=== PATIENT | male | born 1975 | race Caucasian/White ===

== ENCOUNTER 2016-08-24 05:16 | Emergency (ER) | payer SELFPAY ==
[~2016-08-24 05:16] MED LIST: CARI350T PO; CYCL-331 PO; DEXL60CA2 PO; DIVA500T2 PO; DIVA500T4 PO; GABA600T2 PO; LOSA100T6 PO; NAPR500T PO; NEBI20TA2 PO; OLAN20TA3 PO; OXYM10TA PO; OXYM10TA28 PO; QUET300T5 PO; TRAM50TA PO; TRAZ-90 PO
[2016-08-24] MEDS: LIDOCAINE WITH 8.4% SOD BICARB 3 ML DISP.SYRIN. IJ ONE (06:30)
[2016-08-24] MEDS ORDERED: CLIN300C8 PO (07:03)
--- NOTE | 2016-08-24 07:12 | PHYS DOC ---
Past History Past Medical History: No Pertinent History Past Surgical History: No Surgical History Smoking: Cigarettes Alcohol Use: None Drug Use: None Adult General Chief Complaint Chief Complaint: ABSCESS HPI HPI 40-year-old male presenting to the emergency department with worsening fluctuance in his buttocks over the past 2 days. He reports it initially started as a pimple but over the past 24 hours has turned into a golf ball sized abscess. Location buttocks region. Duration constant. Associated with pain that is sharp moderate intermittent and without alleviating factors. He denies any fevers or chills. He denies any other symptoms. Review of systems is negative for chest pain shortness of breath abdominal pain nausea vomiting. All other review of systems is negative unless otherwise noted in history of present illness. ED course: 40-year-old gentleman presenting with an abscess in the perianal region. Initially abscess seemed superficial so small incision was made and gentle blunt dissection using Beatriz forceps. Purulent drainage was obtained. Under gentle blunt dissection, it became apparent that the abscess was deeper than initially thought. At that point in time, incision and drainage was stopped and I discussed the case with our surgeon on-call for consultation (dr. beasley). Collectively, given the depth of the abscess, we decided to give the patient IV antibiotics and transfer for admission and further evaluation with potential surgical intervention. I recommended the patient go by ambulance however the patient refused and strongly desires to go by private vehicle. The patient demonstrates medical decision making capacity. The patient was then directly admitted to [facility] with surgical consultation for further evaluation workup and care. Review of Systems Review of Systems SEE ABOVE. Current Medications Current Medications Current Medications Medications (Trade) Dose Ordered Sig/Sathya Start Time Stop Time Status Last Admin Dose Admin Lidocaine/Sodium Bicarbonate (Buffered Lidocaine 1%) 6 ml 1X ONCE 08/24/16 06:30 08/24/16 06:47 DC 08/24/16 06:30 6 ML Allergies Allergies Allergies Coded Allergies Type Severity Reaction Last Updated Verified oxycodone Allergy Intermediate Hives 02/11/16 Yes Physical Exam Physical Exam Constitutional: Well developed, well nourished, no acute distress, non-toxic appearance. HENT: Normocephalic, atraumatic, bilateral external ears normal, oropharynx moist, no oral exudates, nose normal. [] Eyes: PERRLA, EOMI, conjunctiva normal, no discharge. [] Neck: Normal range of motion, no tenderness, supple, no stridor. Cardiovascular:Heart rate regular rhythm, no murmur [] Lungs & Thorax: Bilateral breath sounds clear to auscultation [] Abdomen: Bowel sounds normal, soft, no tenderness, no masses, no pulsatile masses. [] Anogenital exam. The patient has fluctuance in the posterior perianal ischial region with swelling and redness. Skin: Warm, dry, no erythema, no rash. [] Back: No tenderness, no CVA tenderness. [] Extremities: No tenderness, no cyanosis, no clubbing, ROM intact, no edema. [] Neurologic: Alert and oriented X 3, normal motor function, normal sensory function, no focal deficits noted. [] Psychologic: Affect normal, judgement normal, mood normal. [] Current Patient Data Vital Signs Vital Signs Date Time Temp Pulse Resp B/P (MAP) Pulse Ox O2 Delivery O2 Flow Rate FiO2 08/24/16 05:42 98.3 85 20 97 Room Air EKG EKG [] Radiology/Procedures Radiology/Procedures [] Course & Med Decision Making Course & Med Decision Making Pertinent Labs and Imaging studies reviewed. (See chart for details) [] Dragon Disclaimer Dragon Disclaimer This chart was dictated in whole or in part using Voice Recognition software in a busy, high-work load, and often noisy Emergency Department environment. It may contain unintended and wholly unrecognized errors or omissions. Departure Departure: Impression: Primary Impression: Perirectal abscess Disposition: ADMITTED INPATIENT Condition: STABLE Referrals: ROSE MARY KRAUS DO (PCP) Patient Instructions: Valerie-Rectal Abscess Scripts Clindamycin Hcl (CLINDAMYCIN HCL) 300 Mg Capsule 1 CAP PO TID, #21 CAP Prov: CASSIE REYES MD 08/24/16 CASSIE REYES MD Aug 24, 2016 07:12
[2016-08-24 07:17] LABS: BASO % 1 % (0-3); EOS # 0.1 x10^3/uL (0.0-0.7); EOS % 1 % (0-3); HEMATOCRIT 33.9 % (39.0-53.0); HEMOGLOBIN 11.5 g/dL (13.0-17.5); LYMPH % 28 % (24-48); MEAN CORPUSCULAR HEMOGLOBIN 28 pg (25-35); MEAN CORPUSCULAR HGB CONC 34 g/dL (31-37); MEAN CORPUSCULAR VOLUME 82 fL (79-100); MONO # 0.6 x10^3/uL (0.0-1.1); MONO % 8 % (0-9); NEUT # 4.4 x10^3uL (1.8-7.7); NEUT % 62 % (31-73); PLATELET COUNT 208 x10^3/uL (140-400); RED BLOOD COUNT 4.13 x10^6/uL (4.30-5.70); RED CELL DISTRIBUTION WIDTH 18.4 % (11.5-14.5); WHITE BLOOD COUNT 7.2 x10^3/uL (4.0-11.0)
[2016-08-24] MEDS: CLINDAMYCIN 900MG PREMIX 50 ML IV ONE (07:17)
[2016-08-24 07:25] LABS: CALCIUM 7.9 mg/dL (8.5-10.1); CREATININE 0.7 mg/dL (0.7-1.3); GFR 124.9; POTASSIUM 3.9 mmol/L (3.5-5.1)
[2016-08-24 07:54] VITALS: BP 135/70
--- NOTE | 2016-08-24 08:11 | ACF ---
Admission Criteria Forms SKIN AND WOUND CARE Clinical Indications for Inpatient Care (Place 'X' for any and all applicable criteria): Ongoing inpatient care may be indicated for pressure, venous, arterial, or neuropathic ulcers, with ANY ONE of the following (2)(3)(8)(9)(21)(25): [ ]I. Need for ANY ONE of the following(26) [ ]a) Pressure ulcer closure procedures [ ]b) Skin grafting [ ]c) Wound debridement [ ]d) Dressing change under general anesthesia [ ]e) Arterial revascularization procedures(19) (Also use Aortofemoral or Aortoiliac Bypass or Femoral Popliteal Bypass Criteria as appropriate) [ ]f) Amputation (Also use Foot: Transmetatarsal Amputation or Knee: Amputation Above or Below Knee Criteria as appropriate) [ ]g) Diverting colostomy [ ]h) Other significant surgical treatment [ ]II. Infection requiring inpatient care as indicated by ALL of the following( 27) [ ]a) ANY ONE of the following signs of infection: [ ]i) Poorly approximated incision line. [ ]ii) Excessive drainage [ ]iii) Foul odor [ ]iv) Pus [ ]v) Increased redness [ ]vi) Breakdown in tissue after suture removal [ ]vii) Fever [ ]b) ANY ONE of the following findings: [ ]i) Mental status changes [ ]ii) Dehydration [ ]iii) Bacteremia [ ]iv) Perineal infection [ ]v) Hemodynamic instability [ ]vi) High-risk conditions, such as ANY ONE of the following: [ ]1) Poorly controlled diabetes [ ]2) Cirrhosis [ ]3) Neutropenia [ ]4) Asplenia [ ]5) HIV infection [ ]6) Immunosuppression Extended stay beyond goal length of stay for primary condition may be needed until ALL of the following are present(1)(2)(13)(21)(27): [ ]a) Tissue necrosis absent or treatment plan manageable at lower level of care [ ]b) Fistulas, tunneling, or underlying deep tissue infection absent or treated [ ]c) Purulence and tissue breakdown absent or improved [ ]d) Ulcer surgical repair absent or healing without complications [ ]e) Wound infection absent or manageable at lower level of care [ ]f) Comorbidities absent or manageable at lower level of care The original Babita Randle content created by [employer] has been revised. The portions of the content which have been revised are identified through the use of italic text or in bold, and [facility] has neither reviewed nor approved the modified material. All other unmodified content is copyright [facility]. Please see references footnoted in the original [facility] edition 2016 ES TANNER Aug 24, 2016 08:11
== END 2016-08-24 08:30 | disposition short-term general hospital (02) ==
LOC: ER 05:16
DX: K61.1 Rectal abscess (principal); F17.210 Nicotine dependence, cigarettes, uncomplicated; Z88.6 Allergy status to analgesic agent
CPT/HCPCS: 36415; 46050; 80048; 85027; 96365; 99285; J3490; 10060

== ENCOUNTER 2016-12-24 19:31 | Emergency (ER) | payer SELFPAY ==
[~2016-12-24] VITALS: Ht 180.3 cm; Wt 65.1 kg
[~2016-12-24 19:31] MED LIST changes: +CLIN300C8 PO
--- NOTE | 2016-12-24 20:24 | ED.ADGEN ---
Past History Past Medical History: No Pertinent History Past Surgical History: No Surgical History Smoking: Cigarettes Alcohol Use: None Drug Use: None Adult General Chief Complaint Chief Complaint " I got an infection under my chin.... I ve been trying to get it to drain... and it is really infected.. and got infection of this index finger Rt..." " I ve had MRSA in the past... " HPI HPI Patient is a 41 year old male who presents with above hx and complaints of cellulitis Lt index, and chin. Pt. has a pointing abscess under chin that he reports he attempted to drain. Abscess appears to have started from folliculitis. Pt. has some adenopathy in neck. Patient also has complaints of left index finger abscess on distal joint of index finger. Patient also was attempted to drain this several times. Patient denies any history of immunosuppression. Patient denies any travel or specific ill contacts. Patient does have history of previous MRSA. Patient states had tetanus 3 years ago. Patient normally follows with Dr. Coombs. Procedure note- incision and drainage- pointing abscess on chin in size of 11 blade after prepping with Betadine. Possibly 3 mL of white pus drainage. Left index finger prepped with Betadine and incised with 11 blade with also drainage possibly 1 mL of white pus. Wounds re-cleaned with Betadine. Dressing applied. Patient to take Bactrim DS twice a day for 10 days. Polysporin 4 times a day. Wounds. Keep clean and dry. Return if any concerns. Must follow-up primary care Review of Systems Review of Systems Constitutional: Denies fever or chills [] Eyes: Denies change in visual acuity, redness, or eye pain [] HENT: Denies nasal congestion or sore throat [] Respiratory: Denies cough or shortness of breath [] Cardiovascular: No additional information not addressed in HPI [] GI: Denies abdominal pain, nausea, vomiting, bloody stools or diarrhea [] : Denies dysuria or hematuria [] Musculoskeletal: Denies back pain or joint pain [] Integument: Complaints of abscess Neurologic: Denies headache, focal weakness or sensory changes [] Endocrine: Denies polyuria or polydipsia [] Family History Family History Noncontributory Current Medications Current Medications Current Medications Medications (Trade) Dose Ordered Sig/Sathya Start Time Stop Time Status Last Admin Dose Admin Ceftriaxone Sodium (Rocephin Im) 1 gm 1X ONCE 12/24/16 20:30 12/24/16 20:31 DC 12/24/16 21:30 1 GM Diphtheria/ Tetanus/Acell Pertussis (Boostrix) 0.5 ml ONCE ONCE 12/24/16 20:30 12/24/16 20:31 DC 12/24/16 21:32 0.5 ML Lidocaine HCl 20 ml STK-MED ONCE 12/24/16 21:24 12/24/16 21:25 DC Tetanus/ Diphtheria Toxoids Adsorbed (Tenivac Vial) 0.5 ml ONCE ONCE 12/24/16 20:30 12/24/16 20:31 UNV Trimethoprim/ Sulfamethoxazole (Bactrim Ds) 1 tab 1X ONCE 12/24/16 20:30 12/24/16 20:31 DC 12/24/16 21:30 1 TAB Allergies Allergies Allergies Coded Allergies Type Severity Reaction Last Updated Verified oxycodone Allergy Intermediate Hives 02/11/16 Yes Physical Exam Physical Exam Constitutional: Moderate distress, non-toxic appearance. [] HENT: Normocephalic, atraumatic, bilateral external ears normal, oropharynx moist, no oral exudates, nose normal. Abscess as per history of present illness. No dentition Eyes: PERRLA, EOMI, conjunctiva normal, no discharge. [] Neck: Normal range of motion, no tenderness, supple, no stridor. [] Cardiovascular:Heart rate regular rhythm, no murmur [] Lungs & Thorax: Bilateral breath sounds equal with scattered wheezes on auscultation [] Abdomen: Bowel sounds normal, soft, no tenderness, no masses, no pulsatile masses. [] Skin: Warm, dry, no erythema, no rash. [] Back: No tenderness, no CVA tenderness. [] Extremities: No tenderness, no cyanosis, no clubbing, ROM intact, no edema. Except findings of left index finger as per history of present illness Neurologic: Alert and oriented X 3, normal motor function, normal sensory function, no focal deficits noted. [] Psychologic: Affect normal, judgement normal, mood normal. [] Current Patient Data Vital Signs Vital Signs Date Time Temp Pulse Resp B/P (MAP) Pulse Ox O2 Delivery O2 Flow Rate FiO2 12/24/16 22:10 98.0 72 16 127/76 (93) 98 EKG EKG [] Radiology/Procedures Radiology/Procedures [] Course & Med Decision Making Course & Med Decision Making Pertinent Labs and Imaging studies reviewed. (See chart for details). Patient take Bactrim DS twice a day for 10 days. Massage area Polysporin. Follow -up primary care. Return if any concerns. [] Final Impression Final Impression 1. Cellulitis[]/abscess Problems: Dragon Disclaimer Dragon Disclaimer This electronic medical record was generated, in whole or in part, using a voice recognition dictation system. UBALDO JUAREZ MD Dec 24, 2016 20:24
[2016-12-24] MEDS ORDERED: SMZ/TMP 800/160MG TABLET. PO ONE (20:30)
[2016-12-24] MEDS ORDERED: TETANUS AND DIPHTHERIA TOX/PF 0.5 ML VIAL. VAX IM ONE (20:30)
[2016-12-24] MEDS ORDERED: DIPHTH,PERTUSS(ACELL),TET TOX 0.5 ML DISP.SYRIN. VAX IM ONE (20:30)
[2016-12-24] MEDS ORDERED: cefTRIAXone IM 1 GM VIAL IM ONE (20:30)
[2016-12-24] MEDS ORDERED: SULF1TAB24 PO (20:31)
[2016-12-24] MEDS ORDERED: BACI28.34 TP (20:31)
[2016-12-24] MEDS ORDERED: LIDOCAINE 1% Multi-Dose 20 ML VIAL. ONE (21:24)
[2016-12-24 22:10] VITALS: BP 127/76
--- NOTE | 2016-12-25 06:03 | EKG ---
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
== END 2016-12-24 22:15 | disposition home or self-care (01) ==
LOC: ER 19:31
DX: L02.512 Cutaneous abscess of left hand (principal); L02.01 Cutaneous abscess of face; Z88.5 Allergy status to narcotic agent; Z86.14 Personal history of Methicillin resistant Staphylococcus aureus infection
CPT/HCPCS: 90471; 90715; 93005; 96372; 99284; J0696

== ENCOUNTER 2016-12-26 01:03 | Inpatient (IN) | payer SELFPAY ==
[~2016-12-26] VITALS: Ht 180.3 cm; Wt 65.4 kg
[~2016-12-26 01:03] MED LIST changes: +BACI28.34 TP; +SULF1TAB24 PO
--- NOTE | 2016-12-26 01:12 | ED.ADGEN ---
Past History Past Medical History: No Pertinent History, Abscess, Other Past Surgical History: No Surgical History Smoking: Cigarettes Alcohol Use: None Drug Use: None Adult General Chief Complaint Chief Complaint "This abscess did okay after you drained it yesterday.. but tonight this chin area blew all up again.. and fever and chills came back.." HPI HPI Patient is a 41 year old male who presents with abscess and cellulitis. The chin area is still draining Muco- purulent green pus, left index finger is improved.. Patient denies any history of immunosuppression. No travel. No specific ill contacts. Has had MRSA before. Pt. states area under chin started out as folliculitis, but all sudden it" blew up". Pt. seen previously and finger and chin area I & D. Finger looks better, but area on chin has become swollen again. Mild adenopathy in that area. Culture tip placed in the wound and it was used to break up some of the loculations. Approximately 10 cc of garcia/green pus was then drained. Discussed presentation, testing and tx. plan with Dr. Foster. at 210 Am and pt will be admitted for IV antibiotics. Labs pending at time of admission. Review of Systems Review of Systems Constitutional: Denies fever or chills [] Eyes: Denies change in visual acuity, redness, or eye pain [] HENT: Denies nasal congestion or sore throat [] Respiratory: Denies cough or shortness of breath [] Cardiovascular: No additional information not addressed in HPI [] GI: Denies abdominal pain, nausea, vomiting, bloody stools or diarrhea [] : Denies dysuria or hematuria [] Musculoskeletal: Denies back pain or joint pain [] Integument: Complaints of skin infections Neurologic: Denies headache, focal weakness or sensory changes [] Endocrine: Denies polyuria or polydipsia [] Family History Family History Noncontributory Current Medications Current Medications Current Medications Medications (Trade) Dose Ordered Sig/Sathya Start Time Stop Time Status Last Admin Dose Admin Vancomycin HCl (Vanco Per Pharmacy) 1 each PRN DAILY PRN 12/26/16 02:00 UNV See nursing for home meds Allergies Allergies Allergies Coded Allergies Type Severity Reaction Last Updated Verified oxycodone Allergy Intermediate Hives 02/11/16 Yes Physical Exam Physical Exam Constitutional: in acute distress, non-toxic appearance. [] HENT: Normocephalic, atraumatic, bilateral external ears normal, oropharynx moist, no oral exudates, nose normal. Drainage site is under chin still draining green purulent pus Eyes: PERRLA, EOMI, conjunctiva normal, no discharge. [] Neck: Normal range of motion, no tenderness, supple, no stridor. Some mild adenopathy. Cardiovascular:Heart rate regular rhythm, no murmur [] Lungs & Thorax: Bilateral breath sounds equal with scattered wheezes on auscultation [] Abdomen: Bowel sounds normal, soft, no tenderness, no masses, no pulsatile masses. [] Skin: Warm, dry, no erythema, no rash. [] Back: No tenderness, no CVA tenderness. [] Extremities: No tenderness, no cyanosis, no clubbing, ROM intact, no edema. [] Lt index finger tip is swollen but look much better than previous exam. Neurologic: Alert and oriented X 3, normal motor function, normal sensory function, no focal deficits noted. [] Psychologic: Affect anxious, judgement normal, mood normal. [] Current Patient Data Vital Signs Vital Signs Date Time Temp Pulse Resp B/P (MAP) Pulse Ox O2 Delivery O2 Flow Rate FiO2 12/26/16 01:15 98.6 76 16 99 Room Air EKG EKG [] Radiology/Procedures Radiology/Procedures [] Course & Med Decision Making Course & Med Decision Making Pertinent Labs and Imaging studies reviewed. (See chart for details) Discussed presentation, testing and tx. plan with Dr. Foster- 0200 will admit for IV antibiotics [] Final Impression Final Impression 1. Abscess and Cellulitis[] 2. Out pt. Tx. failure 3. Hx. Meth. Use 4. Hx. MRSA 5. Anemia Problems: Dragon Disclaimer Dragon Disclaimer This electronic medical record was generated, in whole or in part, using a voice recognition dictation system. UBALDO JUAREZ MD Dec 26, 2016 01:12
[2016-12-26] MEDS ORDERED: IV RINGERS SOLUTION,LACTATED 1,000 ML IV SCH (02:15)
[2016-12-26] MEDS ORDERED: VANCOMYCIN 1.75 GM in IV NORMAL SALINE 500ML 500 ML IV ONE (02:30)
[2016-12-26] MEDS ORDERED: SMZ/TMP 800/160MG TABLET. PO ONE (02:30)
[2016-12-26] MEDS ORDERED: cefTRIAXone IM 1 GM VIAL IM ONE (02:30)
[2016-12-26] MEDS ORDERED: KETOROLAC 30 MG/ML VIAL. IV ONE (02:30)
[2016-12-26] MEDS ORDERED: VANCOMYCIN PER PHARMACY MC PRN ×2 (03:00→04:15)
[2016-12-26] MEDS ORDERED: IV NORMAL SALINE 500ML 500 ML ONE (03:02)
[2016-12-26] MEDS ORDERED: VANCOMYCIN 1 GM VIAL. ONE ×2 (03:03→03:04)
--- NOTE | 2016-12-26 03:21 | RAD ---
CT MAXILLOFACIAL WO CONTRAST dated 12/26/2016 1:53 AM Indication: Swelling, [id number] Swelling, drainage and pain under chin, patient states it started out as a infected hair. No priors.. Comparison: No comparison is available. Technique: Contiguous axial imaging the maxillofacial bones obtained with thin cut coronal and sagittal reconstruction. One or more of the following individualized dose reduction techniques were utilized for this examination: 1. Automated exposure control 2. Adjustment of the mA and/or kV according to patient size 3. Use of iterative reconstruction technique Findings: Focal soft tissue swelling at the submental region inferior to the mandible. There is skin thickening with prominent subcutaneous edema. A rounded area of induration deep to the skin surface measures about 1.9 cm maximum dimension. No soft tissue gas. Evaluation is limited in the absence of contrast material. No bony destructive changes or periostitis. Mild mucosal thickening of the bilateral ethmoid air cells. The maxillary sinuses and sphenoid sinuses are clear. Ostiomeatal units and infundibula are patent. Mild nasal septal deviation to the left. Imaged portions of the brain parenchyma unremarkable. No additional soft tissue abnormality. IMPRESSION: 1. Focal soft tissue edema in the submental region just inferior to the right aspect of the mandible, nonspecific. This could be related to phlegmon or early abscess but is not well evaluated in the absence of contrast material. 2. Mild ethmoid sinus mucosal thickening. 3. No acute bony abnormality. Electronically signed by: Loco Martinez MD (12/26/2016 3:18 AM) [facility]
[2016-12-26 03:42] LABS: BARBITURATES NEG (NEG); BENZODIAZEPINES NEG (NEG); CANNABINOIDS NEG (NEG); COCAINE NEG (NEG); METHADONE NEG (NEG); OPIATES POS (NEG); PHENCYCLIDINE NEG (NEG)
[2016-12-26 03:43] LABS: AMPHETAMINE/METHAMPHETAMINE POS (NEG); BASO # 0.1 x10^3/uL (0.0-0.2); BASO % 1 % (0-3); EOS % 0 % (0-3); HEMOGLOBIN 11.6 g/dL (13.0-17.5); LYMPH # 2.1 x10^3/uL (1.0-4.8); LYMPH % 32 % (24-48); MEAN CORPUSCULAR HEMOGLOBIN 27 pg (25-35); MEAN CORPUSCULAR HGB CONC 34 g/dL (31-37); MEAN CORPUSCULAR VOLUME 77 fL (79-100); MONO # 0.4 x10^3/uL (0.0-1.1); MONO % 7 % (0-9); NEUT # 3.9 x10^3uL (1.8-7.7); NEUT % 60 % (31-73); PLATELET COUNT 257 x10^3/uL (140-400); RED BLOOD COUNT 4.39 x10^6/uL (4.30-5.70); RED CELL DISTRIBUTION WIDTH 17.7 % (11.5-14.5); WHITE BLOOD COUNT 6.6 x10^3/uL (4.0-11.0)
[2016-12-26 03:47] LABS: ALBUMIN 3.2 g/dL (3.4-5.0); ALBUMIN/GLOBULIN RATIO 0.8 (1.0-1.7); CALCIUM 8.5 mg/dL (8.5-10.1); CREATININE 0.6 mg/dL (0.7-1.3); DIRECT BILIRUBIN 0.1 mg/dL (0.0-0.2); GFR 148.5; POTASSIUM 4.6 mmol/L (3.5-5.1); TOTAL BILIRUBIN 0.2 mg/dL (0.2-1.0); TOTAL PROTEIN 7.2 g/dL (6.4-8.2)
[2016-12-26 03:54] LABS: BACTERIA,URINE 0 /HPF (0-FEW); BILIRUBIN,URINE NEG (NEG); CLARITY,URINE CLEAR; COLOR,URINE YELLOW; GLUCOSE,URINE NEG (NEG); NITRITE,URINE NEG (NEG); RBC,URINE 0 /HPF (0-2); UROBILINOGEN,URINE 0.2 mg/dL (0.2 mg/dL); WBC,URINE RARE /HPF (0-4)
[2016-12-26 04:03] VITALS: BP 123/75
[2016-12-26] MEDS ORDERED: ACETAMINOPHEN 500 MG TABLET PO PRN (04:15)
--- NOTE | 2016-12-26 07:38 | RAD ---
Left hand, 3 views, 12/26/2016: History: Finger swelling, pain, possible foreign body No fracture or destructive bony lesion is seen. No radiopaque foreign body is evident in the soft tissues. IMPRESSION: No significant abnormality is detected.
[2016-12-26] MEDS ORDERED: SMZ/TMP 800/160MG TABLET. PO SCH (09:00)
[2016-12-26] MEDS ORDERED: VANCOMYCIN 1 GM in IV NORMAL SALINE 250ML 250 ML IV SCH (11:00)
[2016-12-26 11:19] VITALS: BP 123/76
[2016-12-26] MEDS: HYDROmorphone 2 MG TABLET PO PRN ×2 (11:43→15:55)
[2016-12-26 14:32] VITALS: BP 131/77
[2016-12-26 15:25] VITALS: BP 128/72
--- NOTE | 2016-12-26 20:35 | SSS ---
ADMIT DATE: 12/26/2016 HISTORY OF PRESENT ILLNESS: The patient is a 41-year-old male patient, who was seen in the Emergency Room complaining that. The dictation ends here. ALDAIR MADERA MD DR: AVTAR/michelle JOB#: [id number] / [id number]
--- NOTE | 2016-12-27 07:02 | SSS ---
ADMIT DATE: 12/26/2016 HISTORY OF PRESENT ILLNESS: The patient was seen initially in the [facility] Emergency Room on 12/24/2016 and he presented there with infection in his chin and also his right index finger stating that he has had MRSA infection in the past and at that time, clinical examination showed that it is in his index and chin. He has a pointing abscess under the chin that he attempted to drain the abscess. The abscess appears to have started some folliculitis. He does have adenopathy in the neck. He did complain of left index finger abscess as apparently he had a scissor that he was unable to take it out as he works in a [employer] company. The abscess was incised by 11 blade, prepped again with Betadine and incised and about 1 mL white pus was removed. Wounds were cleaned with Betadine dressing applied. The patient was given a prescription for Bactrim-DS twice a day for 10 days with Polysporin 4 times a day to both wounds, advised to keep them dry and clean. He basically came back early this morning 12/26/2016 complaining of that the abscess is not healing. He was admitted and apparently the chin area, though incised is now becoming swollen again. Culture tip was placed in the wound and was used to break up some of the loculation and about 10 mL of great greenish pus was then drained and the patient was started on IV vancomycin. The abscess needs to be incised and drained properly and as there are no surgeon in this hospital, patient was transferred to [facility] to consult the surgical team to open this up and perhaps pack it to prevent recurrence. PAST MEDICAL HISTORY: Significant for depression, questionable schizoaffective disorder, severe osteoarthritis of his left hip joint, and hypertension. PAST SURGICAL HISTORY: Left eye surgery, incision and drainage of his chin abscess and left index finger abscess. ALLERGIES: HE IS ALLERGIC TO OXYCODONE. MEDICATIONS: He is currently on following medications: He is on bacitracin polymyxin sulfate ointment applied topically 4 times a day. He was on Dexilant 60 mg once a day, divalproex 500 mg extended release twice a day, gabapentin 600 mg once a day, losartan potassium 100 mg once a day. He is also on oxymorphone ____ 20 mg p.o. b.i.d., quetiapine fumarate 300 mg at bedtime, and trazodone 100 mg at bedtime. FAMILY HISTORY: He has 2 brothers and 1 sister. His father at age of 76 due to end-stage renal disease. Recently his mother also at the age of 52 with myocardial infarction. SOCIAL HISTORY: He is , has 1 son. He quit smoking recently. He does not drink alcohol; however, his toxic screen was positive for opiates as well as methamphetamine, amphetamine. [place] is [place], [place]. PHYSICAL EXAMINATION: GENERAL: On examining him on admission to the hospital, he was sleeping slightly propped up in bed, in no apparent distress, slightly pale, but no jaundice, cyanosis, or thyromegaly. No jugular venous distention or limb edema. VITAL SIGNS: His heart rate was 61, blood pressure 131/77, temperature was 98.8, respiratory rate 20, and oxygen saturation was 97%. HEENT: Showed normocephalic, atraumatic. NECK: Supple. HEART: Showed normal first and second heart sounds with no gallop, rub, or murmur. CHEST: Clear to auscultation. No crepitation or rhonchi. ABDOMEN: Distended, soft, nontender. No guarding or rigidity. No organomegaly. Hernial orifices intact. Bowel sounds normal. NEUROLOGIC: He was awake, alert, responding appropriately. Cranial nerves intact. EXTREMITIES: He moves extremities without difficulty, ambulates without assistance or assistive devices. SKIN: He has cellulitis and abscess in his chin despite multiple attempts to drain the incision and drainage, still fluctuant and yellowish to greenish pus is drained by squeezing it. He has also an abscess in the left index finger. LABORATORY DATA: His lab work showed his white cell count to be 6600, hemoglobin 11.6, hematocrit 34, MCV 77, and platelet count 257,000. His chemistry showed a serum sodium 135, potassium 4.6, chloride 99, bicarbonate 29, anion gap of 7, BUN 13, creatinine 0.6, estimated GFR was 123 mg/dL. His calcium was 8.5. Total bilirubin, AST, ALT, alkaline phosphatase were normal. Total protein 7.2, albumin 3.2. TSH was 1.054. Prothrombin time was 12, INR 1.2, PTT 32. Urinalysis showed the urine was yellow, clear with a pH of 6, specific gravity of 1.020, urine otherwise negative. His toxic screen was positive for opiates and amphetamine, methamphetamine. ASSESSMENT AND PLAN: The patient will be transferred to [facility] to continue on IV vancomycin as per pharmacy recommendation, acetaminophen as well as hydromorphone 2 mg every 4 hours, together with all other medications. FINAL DISCHARGE DIAGNOSES: Chin cellulitis and abscess to the left index finger, history of MRSA, hypertension. ALDAIR MADERA MD DR: AVTAR/michelle JOB#: [id number] / [id number]
== END 2016-12-26 17:00 | disposition short-term general hospital (02) | DRG 603 ==
LOC: ER 01:03 → 1 SOUTH 02:00
PROVIDERS: ADMIT Internal Medicine; ATTEND Internal Medicine
PROC: 0H91XZZ Drainage of Face Skin, External Approach (ICD-10-PCS; principal; 2016-12-26)
DX: L03.211 Cellulitis of face (principal); D64.9 Anemia, unspecified; L02.512 Cutaneous abscess of left hand; L02.01 Cutaneous abscess of face; I10 Essential (primary) hypertension; F32.9 Major depressive disorder, single episode, unspecified; F15.90 Other stimulant use, unspecified, uncomplicated; L73.9 Follicular disorder, unspecified; R59.9 Enlarged lymph nodes, unspecified; F11.90 Opioid use, unspecified, uncomplicated; Z59.0 Homelessness; Z86.14 Personal history of Methicillin resistant Staphylococcus aureus infection; Z87.891 Personal history of nicotine dependence; Z88.8 Allergy status to other drugs, medicaments and biological substances
CPT/HCPCS: 36415; 70486; 73130; 80053; 80307; 81001; 82248; 82550; 84443; 84484; 85025; 85610; 85730; 87040; 87070; 87071; 87075; 87641; 99406; J0696; J1885; J3370; J7040; J7050; J7120; 99285-25; G0479

== ENCOUNTER 2017-11-02 22:09 | Emergency (ER) | payer SELFPAY ==
[~2017-11-02] VITALS: Ht 180.3 cm; Wt 67.1 kg
[~2017-11-02 22:09] MED LIST changes: +CEPH-264 PO; +ESOM20CA PO; +INDO25CA5 PO; -LOSA100T6 PO; +LOSA100T7 PO; +LOSA50TA7 PO; +NAPR-683 PO; -NAPR500T PO; +OLAN10TA3 PO; +PRED50TA PO; +QUET25TA5 PO; +TRAZ-86 PO; -TRAZ-90 PO
[2017-11-02 22:30] VITALS: BP 131/80
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
[2017-11-02] MEDS ORDERED: KETOROLAC 30 MG/ML VIAL. IM ONE (23:00)
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
--- NOTE | 2017-11-03 00:59 | RAD ---
RS Compliance Statement: One or more of the following individualized dose reduction techniques were utilized for this examination: 1. Automated exposure control 2. Adjustment of the mA and/or kV according to patient size 3. Use of iterative reconstruction technique CT MAXILLOFACIAL WITHOUT CONTRAST History: Mandible fracture Comparison: Mandible radiographs, prior day. Technique: Axial helical images of the face were obtained without contrast. Axial and coronal reconstruction was performed. Findings: There is acute traumatic nondisplaced fracture of the body of the right mandible, sagittal image 44. The right TMJ is intact. The left TMJ is intact. There is acute traumatic mildly displaced fracture of the left mandibular ramus, coronal image 34 and sagittal image 15. Mild mucosal thickening inferiorly in the left maxillary sinus. There is no air-fluid level. Mastoid air cells are aerated. The orbits are normal. The globes are intact. The nasal septum is mostly midline. The ostiomeatal complexes are narrow but patent. Upper cervical spine alignment is maintained. IMPRESSION: Acute traumatic bilateral mandible fractures. Electronically signed by: Butch Higginbotham MD (11/03/2017 12:56 AM) [facility]
[2017-11-03] MEDS ORDERED: HYDROmorphone PF 1 MG/ML DISP.SYRIN IV ONE (02:30)
[2017-11-03] MEDS ORDERED: ONDANSETRON PF 4 MG/2 ML VIAL. IV ONE (02:30)
== END 2017-11-03 03:55 | disposition short-term general hospital (02) ==
LOC: ER 22:09
DX: S02.642A Fracture of ramus of left mandible, initial encounter for closed fracture (principal); S02.601A Fracture of unspecified part of body of right mandible, initial encounter for closed fracture; I10 Essential (primary) hypertension; M19.90 Unspecified osteoarthritis, unspecified site; F17.210 Nicotine dependence, cigarettes, uncomplicated; Z88.5 Allergy status to narcotic agent; V29.9XXA Motorcycle rider (driver) (passenger) injured in unspecified traffic accident, initial encounter; Y93.55 Activity, bike riding; Y92.488 Other paved roadways as the place of occurrence of the external cause; Y99.8 Other external cause status
CPT/HCPCS: 70110; 70486; 96372; 96374; 96375; 99285; J1170; J1885; J2405

== ENCOUNTER 2017-11-16 19:17 | Emergency (ER) | payer SELFPAY ==
[~2017-11-16 19:17] MED LIST changes: +HYDR-971 PO; +IBUP800T19 PO
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
[2017-11-16 19:30] VITALS: BP 122/77
[2017-11-16] MEDS ORDERED: SULF1TAB24 PO (19:44)
[2017-11-16] MEDS ORDERED: cefTRIAXone IM 1 GM VIAL IM ONE (20:00)
[2017-11-16] MEDS ORDERED: KETOROLAC 60 MG/2 ML VIAL. IM ONE (20:00)
== END 2017-11-16 20:00 | disposition home or self-care (01) ==
LOC: ER 19:17
DX: L03.116 Cellulitis of left lower limb (principal); S02.609D Fracture of mandible, unspecified, subsequent encounter for fracture with routine healing; F17.210 Nicotine dependence, cigarettes, uncomplicated; X58.XXXD Exposure to other specified factors, subsequent encounter
CPT/HCPCS: 96372; 99284; J0696; J1885

== ENCOUNTER 2017-11-18 21:39 | Emergency (ER) | payer SELFPAY ==
[~2017-11-18] VITALS: Ht 180.3 cm; Wt 61.2 kg
[2017-11-18 22:01] VITALS: BP 160/82
--- NOTE | 2017-11-18 22:05 | ED.ADGEN ---
Past History Past Medical History: Bipolar, Depression, Other Past Surgical History: Other Smoking: Cigarettes Alcohol Use: None Drug Use: None Adult General Chief Complaint Chief Complaint ".. I still got pain in my jaw.. I got follow up at [facility] tomorrow.. but I need pain meds.. and I still got the rash on my Lt. ankle.." HPI HPI Patient is a 41 year old male who presents with above hx and complaints of mandible pain. Patient has had surgical repair of mandible due to fractures. Patient has had previous appointment to for follow-up , but has not kept follow-ups at . Patient seen previously in ED by this physician. At that time patient started on antibiotics for his cellulitis Lt ankle and possible cellulitis/infection and mandible. Patient has been seen previously in this emergency department prior to my evaluation and was told to follow-up at . Patient does seem to exhibit narcotic seeking behaviors. Tonight there is no exacerbation of the inflammation of mandible. The ankle cellulitis appears to be improving. Patient does have a follow-up appointment at in the morning. Review of Systems Review of Systems Constitutional: Denies fever or chills [] Eyes: Denies change in visual acuity, redness, or eye pain [] HENT: Denies nasal congestion or sore throat []complains of mandible pain Respiratory: Denies cough or shortness of breath [] Cardiovascular: No additional information not addressed in HPI [] GI: Denies abdominal pain, nausea, vomiting, bloody stools or diarrhea [] : Denies dysuria or hematuria [] Musculoskeletal: Denies back pain or joint pain [] Integument: Denies rash or skin lesions [] Neurologic: Denies headache, focal weakness or sensory changes [] Endocrine: Denies polyuria or polydipsia [] All other systems were reviewed and found to be within normal limits, except as documented in this note. Family History Family History Noncontributory Current Medications Current Medications Current Medications Medications (Trade) Dose Ordered Sig/Sathya Start Time Stop Time Status Last Admin Dose Admin Ceftriaxone Sodium (Rocephin Im) 1 gm 1X ONCE 11/18/17 23:30 11/18/17 23:31 DC 11/18/17 23:21 1 GM Ketorolac Tromethamine (Toradol Im) 60 mg 1X ONCE 11/18/17 22:30 11/18/17 22:31 DC 11/18/17 22:31 60 MG Allergies Allergies Allergies Coded Allergies Type Severity Reaction Last Updated Verified oxycodone Allergy Intermediate Hives 02/11/16 Yes morphine Allergy Mild RASH 11/10/17 Yes Physical Exam Physical Exam Constitutional: Moderately acute distress, non-toxic appearance. [] HENT: Normocephalic, bilateral external ears normal, oropharynx moist, no oral exudates, nose normal. Old surgical repair scars. Inflammation of mandible appears to be improving from last ED visit. Eyes: PERRLA, EOMI, conjunctiva normal, no discharge. [] Neck: Normal range of motion, no tenderness, supple, no stridor. [] Cardiovascular:Heart rate regular rhythm, no murmur [] Lungs & Thorax: Bilateral breath equal at apex with scattered wheezes on auscultation [] Abdomen: Bowel sounds normal, soft, no tenderness, no masses, no pulsatile masses. [] Skin: Warm, dry, no erythema, cellulitis left ankle is improved. No striations Back: No tenderness, no CVA tenderness. [] Extremities: No tenderness, no cyanosis, no clubbing, ROM intact, no edema. [] Neurologic: Alert and oriented X 3, normal motor function, normal sensory function, no focal deficits noted. [] Psychologic: Affect anxious, judgement normal, mood depressed. Current Patient Data Vital Signs Vital Signs Date Time Temp Pulse Resp B/P (MAP) Pulse Ox O2 Delivery O2 Flow Rate FiO2 11/18/17 22:01 97.9 78 20 96 Room Air EKG EKG [] Radiology/Procedures Radiology/Procedures [] Course & Med Decision Making Course & Med Decision Making Pertinent Labs and Imaging studies reviewed. (See chart for details). Patient strongly encouraged to follow up with his scheduled appointment morning. Patient encouraged to stop smoking. Patient continue his Bactrim as directed. Patient will give additional IM injection of Rocephin tonight. As well as a IM injection of Toradol. Patient informed further narcotics must be filled through his primary care or the oral surgery clinic at . [] Final Impression Final Impression 1. Mandible pain-status post surgical repair 2. Cellulitis left ankle 3. Tobacco abuse 4. Appears to have narcotic seeking behaviors[] Dragon Disclaimer Dragon Disclaimer This electronic medical record was generated, in whole or in part, using a voice recognition dictation system. UBALDO JUAREZ MD Nov 18, 2017 22:05
[2017-11-18] MEDS ORDERED: KETOROLAC 60 MG/2 ML VIAL. IM ONE (22:30)
[2017-11-18] MEDS ORDERED: cefTRIAXone IM 1 GM VIAL IM ONE (23:30)
== END 2017-11-18 23:40 | disposition home or self-care (01) ==
LOC: ER 21:39
DX: G89.18 Other acute postprocedural pain (principal); R68.84 Jaw pain; L03.116 Cellulitis of left lower limb; F17.210 Nicotine dependence, cigarettes, uncomplicated; F31.9 Bipolar disorder, unspecified; Z88.5 Allergy status to narcotic agent
CPT/HCPCS: 96372; 99284; J0696; J1885